=== PATIENT | male | born 1965 | race Two or more races ===

== ENCOUNTER 2023-10-30 22:37 | Emergency (ER) | payer BC ==
[~2023-10-30] VITALS: Ht 165.1 cm
[2023-10-30] MEDS ORDERED: LIPITOR20 MG PO (23:09)
[2023-10-31] MEDS ORDERED: KETOROLAC TROMETHAMINE 30 MG VIAL IV ONE (00:30)
[2023-10-31] MEDS ORDERED: CEFTRIAXONE SODIUM 2,000 MG VIAL IV ONE (00:30)
[2023-10-31] MEDS ORDERED: BACTRIM DS TAB1 EACH PO (00:33)
[2023-10-31] MEDS ORDERED: DICLOFENAC SODI75 MG PO (00:33)
[2023-10-31] MEDS ORDERED: KETOROLAC TROMETHAMINE 30 MG VIAL ONE (00:35)
[2023-10-31] MEDS ORDERED: CEFTRIAXONE SODIUM 2,000 MG VIAL ONE (00:35)
== END 2023-10-31 01:13 | disposition home or self-care (01) ==
LOC: ER 22:39
DX: S80.862A Insect bite (nonvenomous), left lower leg, initial encounter (principal); B96.89 Other specified bacterial agents as the cause of diseases classified elsewhere; W57.XXXA Bitten or stung by nonvenomous insect and other nonvenomous arthropods, initial encounter; Y93.9 Activity, unspecified; Y92.89 Other specified places as the place of occurrence of the external cause; Y99.9 Unspecified external cause status